=== PATIENT | male | born 1960 | race Caucasian/White ===

== ENCOUNTER 2016-05-31 13:11 | Outpatient (CLI) ==
[2015-07-03 21:00] VITALS: BMI 30.9
[2016-05-31 13:24] LABS: BASOPHILS # (AUTO) 0.1 K/uL (0-0.2); BASOPHILS % (AUTO) 0.9 % (0.0-3.0); EOSINOPHILS # (AUTO) 0.3 K/ul (0.0-0.7); EOSINOPHILS % (AUTO) 4.5 % (0.0-7.0); HEMATOCRIT 43.4 % (42.0-52.0); HEMOGLOBIN 15.2 g/dl (14.0-18.0); IMMATURE GRANULOCYTE % (AUTO) 0.3 % (0.0-5.0); LYMPHOCYTES # (AUTO) 1.6 K/uL (0.60-3.4); LYMPHOCYTES % (AUTO) 23.7 (10.0-50.0); MEAN CORPUSCULAR VOLUME 91.4 fl (80.0-94.0); MONOCYTES # (AUTO) 0.6 K/uL (0.4-2.0); MONOCYTES % (AUTO) 8.9 (0-10); NEUTROPHILS # (AUTO) 4.2 K/ul (2.0-6.9); NEUTROPHILS % (AUTO) 61.7; PLATELET COUNT 230 10^3/uL (140-440); RED BLOOD COUNT 4.75 10^6/ul (4.70-6.10); WHITE BLOOD COUNT 6.83 K/ul (4.2-10.2)
[2016-05-31 14:09] LABS: ALBUMIN 3.7 g/dL (3.4-5.0); ANION GAP 11.8; BILIRUBIN,TOTAL 0.59 mg/dL (0.00-1.20); BUN/CREATININE RATIO 10.52; CALCIUM 9.4 mg/dL (8.2-10.2); CHOL/HDL RATIO 3.8 (4.5-6.4); CREATININE 0.95 mg/dL (0.60-1.10); POTASSIUM 3.8 mmol/L (3.5-5.1); TOTAL PROTEIN 7.4 g/dL (6.4-8.2)
== END 2016-05-31 13:12 | disposition home or self-care (01) ==
LOC: LAB 13:11
PROVIDERS: ATTEND Nurse Practitioner Family
DX: Z51.81 Encounter for therapeutic drug level monitoring (principal); Z00.00 Encounter for general adult medical examination without abnormal findings
CPT/HCPCS: 36415; 80053; 80061; 80156; 84443; 85025

== ENCOUNTER 2016-06-30 14:48 | Outpatient (CLI) ==
[2015-07-03 21:00] VITALS: BMI 30.9
== END 2016-06-30 14:49 | disposition home or self-care (01) ==
LOC: LAB 14:48
PROVIDERS: ATTEND Nurse Practitioner Family
DX: G40.909 Epilepsy, unspecified, not intractable, without status epilepticus (principal)
CPT/HCPCS: 36415; 80156

== ENCOUNTER 2016-09-21 07:59 | Emergency (ER) ==
[2016-09-21 08:06] VITALS: BP 123/79; TEMP 97.1; BMI 30.2
[2016-09-21] MEDS ORDERED: ROCEPHIN IM STA (08:52)
[2016-09-21] MEDS ORDERED: LIDOCAINE 1 % AMP 5 ML (SUTURES) IM STA (08:52)
--- NOTE | 2016-09-21 08:55 | ED.PDOC ---
General ED Provider: Dr. FRANKIE SERNA Chief Complaint: Rash Stated Complaint: Rash left li Time Seen by Physician: 08:00 (RN PRESENT AT BEDSIDE AT ALL TIMES ) Mode of Arrival: Walk-In Information Source: Patient Exam Limitations: No limitations [facility] and Triage Documentation Reviewed and Agree: Yes (SEE PHOTOS) Skin Complaint Exam - Skin Rash/Itching Complaint/Exam Onset/Duration: DEVELOPED A RASH OF PSORAISIS WHICH HEW IS ACOUSTMED TO Symptoms Are: Still present Initial Severity: Mild Current Severity: Mild (HE SCRATCHED IT WITH HEEL OF HIS FOOT RASH GOT WORSE SEE PHOTS) Potential Exposures: Reports: Other (DIRTY FOOT ) Aggravating: Reports: None Alleviating: Reports: None Associated Signs and Symptoms: Denies: Difficulty breathing, Fever, Chills Related History: Similar episode (TYPICAL OF HIS PSORIASIS WHICH IS NOW WORSE DUE TO SCRATHCHING) Skin Findings: Present: Papules, Vesicles Differential Diagnoses: Other (SECONDRY INFECTION ) Review of Systems - Review Of Systems Constitutional: Reports: No symptoms Eyes: Reports: No symptoms Ears, Nose, Mouth, Throat: Reports: No symptoms Respiratory: Reports: No symptoms Cardiac: Reports: No symptoms GI: Reports: No symptoms : Reports: No symptoms Musculoskeletal: Reports: No symptoms Skin: Reports: Rash (SEE PHOTOS LOWER LEG LEFT) Neurological: Reports: No symptoms Endocrine: Reports: No symptoms Hematologic/Lymphatic: Reports: No symptoms All Other Systems: Reviewed and Negative Past Medical History - Past Medical History Endocrine: Reports: None Cardiovascular: Reports: CAD, CT Respiratory: Reports: None Hematological: Reports: None Gastrointestinal: Reports: None Genitourinary: Reports: None Neuro/Psych: Reports: Seizure Musculoskeletal: Reports: None Cancer: Reports: None Other Pertinent Past Medical History: Dental decay - Surgical History General Surgical History: Reports: CABG - Family History Family History: Reports: Heart - Social History Smoking Status: Current some day smoker Hx Substance Use: No (marijuana) Alcohol Screening: None Physical Exam - Physical Exam Appearance: Well-appearing, No pain distress, Well-nourished Eyes: SHARLENE, EOMI, Conjunctiva clear ENT: Ears normal, Nose normal, Oropharynx normal Respiratory: Airway patent, Breath sounds clear, Breath sounds equal, Respirations nonlabored Cardiovascular: RRR, Pulses normal, No rub, No murmur GI/: Soft, Nontender, No masses, Bowel sounds normal, No Organomegaly Musculoskeletal: Normal strength, ROM intact, No edema, No calf tenderness Skin: Warm, Dry (RASH WITH SOME BLISTER FORMATION , THIS RASH IS MAINLY MACCULAR BUT SOME FOCAL VESICLES NOTED ) Neurological: Sensation intact, Motor intact, Reflexes intact, Cranial nerves intact, Alert, Oriented Psychiatric: Affect appropriate, Mood appropriate Critical Care Note - Critical Care Note Total Time (mins): 0 Course - Course Orders, Labs, Meds: Orders Category Date Time Status Ceftriaxone Sodium [Rocephin] MEDS 09/21/16 08:52 Stat 1 gm IM ONCE STA Lidocaine HCl/Pf [Lidocaine 1 % Amp 5 ml (Sutures)] MEDS 09/21/16 08:52 Stat 2.1 ml IM ONCE STA Medications Generic Name Dose Route Start Last Admin Trade Name Freq PRN Reason Stop Dose Admin Ceftriaxone Sodium 1 gm 09/21/16 08:52 Rocephin IM 09/21/16 08:53 ONCE STA Vital Signs: Temp Pulse Resp BP Pulse Ox 09/21/16 08:00 97.1 F L 81 16 123/79 96 Departure - Departure Time of Disposition: 08:57 (NURSE PENELOPE PRESENT WE DISCUSSED TO START MEDS X 7 DAYS FOLLOW UP WITH CLINIC . PHOTOS ATTCHED ) Disposition: HOME SELF-CARE Discharge Problem: Bacterial skin infection of leg Qualifiers: Laterality: left Qualifier Code: (L03.116) Cellulitis of left lower limb Instructions: Cellulitis (ED) Condition: Good Pt referred to PMD for follow-up: No Additional Instructions: Please call your Family Physician as soon as possible to schedule a follow-up appointment. THIS KIND OF ANITIBIOTIC MAY RUPTURE AND TENDON AVOID RUNNING LIFTING HEAVY OBJECT SUDDEN JERKY MOVEMENTS Allergies/Adverse Reactions: Allergies No Known Allergies Allergy (Verified 09/21/16 08:06) Home Medications: Ambulatory Orders Atorvastatin Calcium 40 mg PO DAILY #30 06/01/16 Aspirin [Aspirin Chewable] 81 mg PO BID 09/21/16 Levofloxacin [Levaquin] 500 mg PO DAILY #7 tablet 09/21/16 Disposition Discussed With: Patient
== END 2016-09-21 09:40 | disposition home or self-care (01) ==
LOC: ED 07:59
DX: L03.116 Cellulitis of left lower limb (principal); F17.210 Nicotine dependence, cigarettes, uncomplicated
CPT/HCPCS: 96372; 99283

== ENCOUNTER 2017-06-20 09:41 | Outpatient (CLI) ==
--- NOTE | 2017-06-20 10:33 | DI ---
Exam: Five x-rays of the right ribs. Comparison: Chest x-ray performed 07/03/2015. Reason for exam: Fall. FINDINGS: Operative changes are seen after midline sternotomy. The clavicle is intact. No pneumoth orax, pleural effusion, or focal consolidation is seen in the right hemithorax. No displaced right-s ided rib fractures are seen. Impression: No displaced right-sided rib fractures are seen on the examination. The right hemithorax is clear.
== END 2017-06-20 09:42 | disposition home or self-care (01) ==
LOC: RAD 09:41
PROVIDERS: ATTEND Nurse Practitioner Family
DX: R07.1 Chest pain on breathing (principal); R07.81 Pleurodynia; W19.XXXA Unspecified fall, initial encounter

== ENCOUNTER 2017-06-20 12:55 | Outpatient (CLI) | END 2017-06-20 12:56 | disposition home or self-care (01) | LOC: FCC-LAB 12:55 | PROVIDERS: ATTEND Nurse Practitioner Family | DX: G40.909 Epilepsy, unspecified, not intractable, without status epilepticus (principal); E75.6 Lipid storage disorder, unspecified; Z12.5 Encounter for screening for malignant neoplasm of prostate; Z72.0 Tobacco use | CPT/HCPCS: 36415; 80053; 80061; 80156; 85025 ==

== ENCOUNTER 2017-11-20 16:08 | Outpatient (CLI) | END 2017-11-20 16:09 | disposition home or self-care (01) | LOC: RHC-LAB 16:08 | PROVIDERS: ATTEND Nurse Practitioner Family | DX: E78.5 Hyperlipidemia, unspecified (principal); G40.909 Epilepsy, unspecified, not intractable, without status epilepticus; I25.10 Atherosclerotic heart disease of native coronary artery without angina pectoris | CPT/HCPCS: 36415; 80053; 80061; 80156; 85025 ==

== ENCOUNTER 2018-05-23 12:04 | Outpatient (CLI) ==
[2018-03-12 11:29] VITALS: BMI 29.9
== END 2018-05-23 12:05 | disposition home or self-care (01) ==
LOC: LAB 12:04
PROVIDERS: ATTEND Nurse Practitioner Family
DX: E78.5 Hyperlipidemia, unspecified (principal); Z51.81 Encounter for therapeutic drug level monitoring
CPT/HCPCS: 36415; 80053; 80061; 80156